=== PATIENT | male | born 1975 | race African-American/Black ===

== ENCOUNTER 2023-04-09 03:26 | Emergency (ER) | payer OTHER ==
[2023-04-09 03:38] VITALS: BP 148/76; PULSE 56; RESP 20; TEMP 98.4; BMI 25.0
[2023-04-09] MEDS ORDERED: ACETAMINOPHEN 1000 MG/100 ML BAG IVPB ONE (04:09)
[2023-04-09] MEDS ORDERED: LIDOCAINE 5% TOPICAL PATCH TP ONE (04:09)
[2023-04-09] MEDS ORDERED: FAMOTIDINE 20 MG/50 ML IVPB 20 MG/50 ML MG IVPB ONE ×2 (04:09→04:12)
[2023-04-09] MEDS ORDERED: SODIUM CHLORIDE 0.9% 500 ML INFUS.BAG IV ONE ×2 (04:09→05:00)
[2023-04-09] MEDS ORDERED: ONDANSETRON 4 MG/2 ML VIAL IVPUSH ONE (04:09)
[2023-04-09] MEDS ORDERED: LIDOCAINE 4% PATCH TP ONE (04:12)
[2023-04-09] MEDS ORDERED: ACETAMINOPHEN INJECTION 100 ML IVPB ONE (04:12)
[2023-04-09] MEDS ORDERED: ONDANSETRON 4 MG/2 ML VIAL ONE (04:12)
[2023-04-09 04:43] LABS: HEMATOCRIT 48.1 % (35.4-49); HEMOGLOBIN 16.5 GM/dL (11.7-16.9); MCH 30.5 pg (25.7-33.7); MCHC 34.2 g/dl (32.0-35.9); MEAN CELL VOLUME 89.2 fl (80-96); MEAN PLT VOLUME 9.3 fl (7.5-11.1); PLATELET COUNT 209 10^3/uL (134-434); RDW 15.7 % (11.9-15.9); WHITE BLOOD COUNT 18.4 K/mm3 (4.0-10.0)
[2023-04-09] MEDS ORDERED: POTASSIUM CHLORIDE ORAL LIQUID 20 MEQ/15 ML PO ONE (04:59)
[2023-04-09] MEDS ORDERED: MAGNESIUM SULF 50% (8.12 MEQ/2 ML-1 GM VIAL) IVPB ONE (04:59)
[2023-04-09 05:17] LABS: CHLORIDE 102 mmol/L (98-107)
[2023-04-09 05:19] LABS: ALBUMIN 4.2 g/dl (3.4-5.0); CALCIUM 9.3 mg/dL (8.5-10.1)
[2023-04-09 05:20] LABS: BLOOD UREA NITROGEN 15.4 mg/dL (7-18); CO2 20 mmol/L (21-32); GLUCOSE,RANDOM 117 mg/dL (74-106); MAGNESIUM 2.7 mg/dL (1.8-2.4)
[2023-04-09 05:22] LABS: CREATININE 1.2 mg/dL (0.55-1.3); PHOSPHOROUS 4.8 mg/dL (2.5-4.9)
[2023-04-09 05:24] LABS: TOT PROT 11.2 g/dl (6.4-8.2)
[2023-04-09 05:38] LABS: ANION GAP -8 MMOL/L (8-16); POTASSIUM > 10.0 mmol/L (3.5-5.1); SODIUM 114 mmol/L (136-145)
[2023-04-09 06:04] LABS: POTASSIUM 4.1 mmol/L (3.5-5.1)
[2023-04-09 06:07] LABS: ALBUMIN 4.4 g/dl (3.4-5.0); CALCIUM 9.1 mg/dL (8.5-10.1)
[2023-04-09 06:10] LABS: CREATININE 1.3 mg/dL (0.55-1.3); PHOSPHOROUS 2.8 mg/dL (2.5-4.9)
[2023-04-09 06:12] LABS: BILIRUBIN,TOTAL 0.8 mg/dL (0.2-1)
[2023-04-09 07:00] LABS: EPI CELLS 6 /uL (0-25.1); HYALINE CASTS 4 /uL (0-3.1); PH,URINE 5.5 (5.0-8.0); URINE APPEARANCE CLEAR; URINE BACTERIA 2 /uL (0-1359); URINE BILIRUBIN NEGATIVE (NEGATIVE); URINE COLOR DK YELLOW; URINE GLUCOSE (UA) NEGATIVE (NEGATIVE); URINE KETONE 3+ (NEGATIVE); URINE LEUK ESTERASE NEGATIVE (NEGATIVE); URINE NITRITE NEGATIVE (NEGATIVE); URINE PROTEIN 2+ (NEGATIVE); URINE RBC 20 /uL (0-23.9); URINE UROBILINOGEN 0.2 mg/dL (0.2-1.0); URINE WBC 17 /uL (0-25.8)
[2023-04-09 07:10] LABS: PLATELET ESTIMATE ADEQUATE
[2023-04-09] MEDS ORDERED: LIDOCAINE PATCH REMOVAL MC SCH (22:00)
== END 2023-04-09 09:20 | disposition home or self-care (01) ==
LOC: JER 03:26
PROC: 3E033GC Introduction of Other Therapeutic Substance into Peripheral Vein, Percutaneous Approach (ICD-10-PCS; principal; 2023-04-09)
PROC: 3E033NZ Introduction of Analgesics, Hypnotics, Sedatives into Peripheral Vein, Percutaneous Approach (ICD-10-PCS; 2023-04-09)
DX: R11.2 Nausea with vomiting, unspecified (principal); R19.7 Diarrhea, unspecified; R00.1 Bradycardia, unspecified; R10.13 Epigastric pain; G54.4 Lumbosacral root disorders, not elsewhere classified
CPT/HCPCS: 36415; 71046-TC-FY; 72129-TC; 72132-TC; 80053; 81003; 83690; 83735; 84100; 84153; 84439; 84443; 85025; 87086; 93005; 93010; 99285-25; Q9967

== ENCOUNTER 2023-04-09 21:47 | Emergency (ER) | payer OTHER ==
[2023-04-09 21:54] VITALS: BP 166/99; PULSE 52; RESP 18; TEMP 98.5; BMI 25.7
[2023-04-09] MEDS ORDERED: ONDANSETRON 4 MG/2 ML VIAL IVPUSH ONE (22:50)
[2023-04-09] MEDS ORDERED: FAMOTIDINE 20 MG/50 ML IVPB 20 MG/50 ML MG IVPB ONE ×2 (22:50→23:04)
[2023-04-09] MEDS ORDERED: MAG HYDROX/AL HYDROX/SIMETH 30 ML UNIT-DOSE CUP PO ONE (22:51)
[2023-04-09] MEDS ORDERED: MAG HYDROX/AL HYDROX/SIMETH 30 ML UNIT-DOSE CUP ONE (23:03)
[2023-04-09] MEDS ORDERED: ONDANSETRON 4 MG/2 ML VIAL ONE (23:03)
[2023-04-09 23:06] LABS: BASO % 0.5 % (0-2.0); EOS % 0.1 % (0-4.5); HEMATOCRIT 44.7 % (35.4-49); HEMOGLOBIN 15.2 GM/dL (11.7-16.9); LYMPH % 9.2 % (8-40); MCH 30.1 pg (25.7-33.7); MEAN CELL VOLUME 88.7 fl (80-96); MEAN PLT VOLUME 8.6 fl (7.5-11.1); MONO % 4.5 % (3.8-10.2); NEUT % 85.7 % (42.8-82.8); PLATELET COUNT 181 10^3/uL (134-434); RBC 5.04 M/mm3 (4.00-5.60); RDW 15.5 % (11.9-15.9)
[2023-04-09 23:14] LABS: INR 1.1 (0.83-1.09); PROTHROMBIN TIME (PATIENT) 12.8 SEC (9.7-13.0)
== END 2023-04-10 02:26 | disposition home or self-care (01) ==
LOC: JER 21:47
PROC: 3E033GC Introduction of Other Therapeutic Substance into Peripheral Vein, Percutaneous Approach (ICD-10-PCS; principal; 2023-04-09)
PROC: 3E033GC Introduction of Other Therapeutic Substance into Peripheral Vein, Percutaneous Approach (ICD-10-PCS; 2023-04-09)
DX: R10.9 Unspecified abdominal pain (principal); A08.4 Viral intestinal infection, unspecified; R11.2 Nausea with vomiting, unspecified
CPT/HCPCS: 36415; 74176-TC; 84484; 85025; 85610; 99284-25

== ENCOUNTER 2023-11-10 22:59 | Emergency (ER) | payer OTHER ==
[2023-11-10 23:10] VITALS: RESP 18; BMI 22.4
[2023-11-10] MEDS ORDERED: FAMOTIDINE 20 MG/50 ML IVPB 20 MG/50 ML MG IVPB ONE (23:26)
[2023-11-10] MEDS ORDERED: ONDANSETRON 4 MG/2 ML VIAL ONE (23:26)
[2023-11-10] MEDS ORDERED: METHOCARBAMOL 500 MG TABLET ONE (23:31)
[2023-11-10] MEDS ORDERED: LIDOCAINE 4% PATCH TP ONE (23:31)
[2023-11-10] MEDS ORDERED: ACETAMINOPHEN INJECTION 100 ML IVPB ONE (23:31)
[2023-11-10] MEDS: SODIUM CHLORIDE 0.9% 500 ML INFUS.BAG IV ONE (23:48)
[2023-11-10] MEDS: FAMOTIDINE 20 MG/50 ML IVPB 20 MG/50 ML MG IVPB ONE (23:48)
[2023-11-10] MEDS: ACETAMINOPHEN 1000 MG/100 ML BAG IVPB ONE (23:49)
[2023-11-10] MEDS: LIDOCAINE 5% TOPICAL PATCH TP ONE (23:49)
[2023-11-10] MEDS: METHOCARBAMOL 500 MG TABLET PO ONE (23:49)
[2023-11-10] MEDS: ONDANSETRON 4 MG/2 ML VIAL IVPUSH ONE (23:49)
[2023-11-10 23:56] LABS: BASO % 0.5 % (0-2.0); HEMATOCRIT 49.1 % (35.4-49); HEMOGLOBIN 16.6 GM/dL (11.7-16.9); LYMPH % 5.3 % (8-40); MCH 30.4 pg (25.7-33.7); MCHC 33.7 g/dl (32.0-35.9); MEAN CELL VOLUME 90.1 fl (80-96); NEUT % 92.2 % (42.8-82.8); PLATELET COUNT 231 10^3/uL (134-434); RBC 5.45 M/mm3 (4.00-5.60); RDW 15.9 % (11.9-15.9); WHITE BLOOD COUNT 18.2 K/mm3 (4.0-10.0)
[2023-11-11 00:28] LABS: POTASSIUM 4.2 mmol/L (3.5-5.1)
[2023-11-11 00:30] LABS: CALCIUM 10.7 mg/dL (8.5-10.1)
[2023-11-11 00:31] LABS: BLOOD UREA NITROGEN 20.1 mg/dL (7-18)
[2023-11-11 00:34] LABS: CREATININE 1.4 mg/dL (0.55-1.3)
[2023-11-11 00:35] LABS: BILIRUBIN,TOTAL 0.9 mg/dL (0.2-1); TOT PROT 8.7 g/dl (6.4-8.2)
[2023-11-11] MEDS ORDERED: KETOROLAC TROMETHAMINE 15 MG/ML VIAL ONE (00:47)
[2023-11-11] MEDS: KETOROLAC TROMETHAMINE 15 MG/ML VIAL IVPUSH ONE (00:56)
[2023-11-11 01:03] LABS: EPI CELLS 5 /uL (0-25.1); HYALINE CASTS 2 /uL (0-3.1); PH,URINE 5.5 (5.0-8.0); URINE APPEARANCE CLEAR; URINE BACTERIA 2 /uL (0-1359); URINE BILIRUBIN NEGATIVE (NEGATIVE); URINE COLOR YELLOW; URINE GLUCOSE (UA) NEGATIVE (NEGATIVE); URINE KETONE 1+ (NEGATIVE); URINE LEUK ESTERASE NEGATIVE (NEGATIVE); URINE NITRITE NEGATIVE (NEGATIVE); URINE PROTEIN 2+ (NEGATIVE); URINE RBC 428 /uL (0-23.9); URINE UROBILINOGEN 0.2 mg/dL (0.2-1.0); URINE WBC 28 /uL (0-25.8)
[2023-11-11] MEDS: LIDOCAINE PATCH REMOVAL MC SCH (02:13)
[2023-11-11] MEDS ORDERED: AMOX TR/POT CLAV 875MG/125MG TABLETS (FP) ONE (04:20)
[2023-11-11] MEDS: AMOX TR/POT CLAV 875MG/125MG TABLETS (FP) PO ONE (04:25)
[2023-11-11 04:28] VITALS: BP 137/67; PULSE 60; TEMP 98.2
== END 2023-11-11 04:27 | disposition home or self-care (01) ==
LOC: JER 22:59
PROC: 3E033GC Introduction of Other Therapeutic Substance into Peripheral Vein, Percutaneous Approach (ICD-10-PCS; principal; 2023-11-10)
PROC: 3E033GC Introduction of Other Therapeutic Substance into Peripheral Vein, Percutaneous Approach (ICD-10-PCS; 2023-11-10)
PROC: 3E033NZ Introduction of Analgesics, Hypnotics, Sedatives into Peripheral Vein, Percutaneous Approach (ICD-10-PCS; 2023-11-10)
PROC: 3E0333Z Introduction of Anti-inflammatory into Peripheral Vein, Percutaneous Approach (ICD-10-PCS; 2023-11-11)
DX: R11.2 Nausea with vomiting, unspecified (principal); R31.9 Hematuria, unspecified; R19.7 Diarrhea, unspecified; R94.4 Abnormal results of kidney function studies; Z20.822 Contact with and (suspected) exposure to COVID-19
CPT/HCPCS: 0241U-QW; 36415; 74176-TC; 80053; 81003; 83690; 85025; 87086; 99284-25; J0131

== ENCOUNTER 2023-11-11 21:21 | Inpatient (IN) | payer OTHER ==
[2023-11-11] MEDS ORDERED: FAMOTIDINE 20 MG/50 ML IVPB 20 MG/50 ML MG IVPB ONE (22:47)
[2023-11-11] MEDS ORDERED: MAG HYDROX/AL HYDROX/SIMETH 30 ML UNIT-DOSE CUP ONE (22:47)
[2023-11-11] MEDS ORDERED: ONDANSETRON 4 MG/2 ML VIAL ONE (22:47)
[2023-11-11] MEDS ORDERED: SUCRALFATE 1 GM TABLET (FP) ONE (22:47)
[2023-11-11] MEDS ORDERED: ACETAMINOPHEN INJECTION 100 ML IVPB ONE (22:47)
[2023-11-11 23:07] LABS: BASO % 0.1 % (0-2.0); HEMATOCRIT 44.9 % (35.4-49); HEMOGLOBIN 15.2 GM/dL (11.7-16.9); LYMPH % 12.1 % (8-40); MCH 30.6 pg (25.7-33.7); MCHC 33.8 g/dl (32.0-35.9); MEAN CELL VOLUME 90.7 fl (80-96); MONO % 4.6 % (3.8-10.2); NEUT % 83.2 % (42.8-82.8); PLATELET COUNT 199 10^3/uL (134-434); RBC 4.95 M/mm3 (4.00-5.60); RDW 15.6 % (11.9-15.9)
[2023-11-11] MEDS: ACETAMINOPHEN 1000 MG/100 ML BAG IVPB ONE (23:07)
[2023-11-11] MEDS: LACTATED RINGERS SOLUTION 1000 ML INFUS.BAG IV ONE (23:07)
[2023-11-11] MEDS: SUCRALFATE 1 GM TABLET (FP) PO ONE (23:07)
[2023-11-11] MEDS: MAG HYDROX/AL HYDROX/SIMETH 30 ML UNIT-DOSE CUP PO ONE (23:07)
[2023-11-11] MEDS: ONDANSETRON 4 MG/2 ML VIAL IVPUSH ONE (23:08)
[2023-11-11] MEDS: FAMOTIDINE 20 MG/50 ML IVPB 20 MG/50 ML MG IVPB ONE (23:26)
[2023-11-11 23:30] LABS: ALBUMIN 4.6 g/dl (3.4-5.0); BLOOD UREA NITROGEN 17.8 mg/dL (7-18); CALCIUM 9.6 mg/dL (8.5-10.1); MAGNESIUM 2.3 mg/dL (1.8-2.4)
[2023-11-11 23:33] LABS: PHOSPHOROUS 3.6 mg/dL (2.5-4.9)
[2023-11-11 23:34] LABS: BILIRUBIN,TOTAL 0.9 mg/dL (0.2-1)
[2023-11-11 23:35] LABS: TOT PROT 7.8 g/dl (6.4-8.2)
[2023-11-12 00:26] LABS: HIV INTERPRETATION NEGATIVE (NEGATIVE)
[2023-11-12] MEDS ORDERED: KETOROLAC TROMETHAMINE 15 MG/ML VIAL ONE (03:25)
[2023-11-12] MEDS: KETOROLAC TROMETHAMINE 15 MG/ML VIAL IVPUSH ONE (03:26)
[2023-11-12] MEDS: ENOXAPARIN NA (PORCINE) 40 MG/0.4 ML DISP.SYRIN SQ SCH (10:32)
[2023-11-12] MEDS: PANTOPRAZOLE SODIUM 40 MG VIAL IVPUSH SCH (10:32)
[2023-11-12] MEDS: ONDANSETRON 4 MG/2 ML VIAL IVPUSH PRN (10:32)
[2023-11-12] MEDS: LACTATED RINGERS SOLUTION 1,000 ML IV SCH (10:33)
[2023-11-12] MEDS: PIPERACILLIN/TAZOB 3.375 GM 3.375 GM in DEXTROSE 5%-WATER - 50 ML IVPB SCH (10:34)
[2023-11-12 11:17] VITALS: BMI 21.4
[2023-11-12 12:37] LABS: URINE APPEARANCE CLEAR; URINE BILIRUBIN NEGATIVE (NEGATIVE); URINE COLOR YELLOW; URINE GLUCOSE (UA) NEGATIVE (NEGATIVE); URINE KETONE NEGATIVE (NEGATIVE); URINE LEUK ESTERASE NEGATIVE (NEGATIVE); URINE NITRITE NEGATIVE (NEGATIVE); URINE PROTEIN NEGATIVE (NEGATIVE); URINE UROBILINOGEN 0.2 mg/dL (0.2-1.0)
[2023-11-12 12:48] LABS: COCAINE, UR NEGATIVE (NEGATIVE); METHADONE, UR NEGATIVE (NEGATIVE); URINE AMPHETAMINES NEGATIVE (NEGATIVE); URINE BARBITURATES NEGATIVE (NEGATIVE)
[2023-11-12 12:49] LABS: OPIATES, URI POSITIVE (NEGATIVE); PHENCYCLIDINE,URINE NEGATIVE (NEGATIVE); URINE BENZODIAZEPINES NEGATIVE (NEGATIVE)
[2023-11-12] MEDS: ACETAMINOPHEN 1000 MG/100 ML BAG IVPB PRN (17:10)
[2023-11-12] MEDS: LATANOPROST 0.005% OPHTH SOLN 2.5ML BOTTLE OU SCH (22:23)
[2023-11-12] MEDS: MELATONIN 5 MG TABLETS PO PRN (22:55)
[2023-11-13] MEDS: LORazepam 2 MG/ML SDV VIAL IVPUSH ONE (03:30)
[2023-11-13] MEDS: MAG HYDROX/AL HYDROX/SIMETH 30 ML UNIT-DOSE CUP PO ONE (06:41)
[2023-11-13 09:01] LABS: BASO % 0.2 % (0-2.0); HEMATOCRIT 41.2 % (35.4-49); HEMOGLOBIN 14.2 GM/dL (11.7-16.9); MCH 31.1 pg (25.7-33.7); MCHC 34.5 g/dl (32.0-35.9); MEAN CELL VOLUME 90.2 fl (80-96); MEAN PLT VOLUME 9.4 fl (7.5-11.1); MONO % 5.1 % (3.8-10.2); NEUT % 75.7 % (42.8-82.8); PLATELET COUNT 178 10^3/uL (134-434); RBC 4.57 M/mm3 (4.00-5.60); RDW 15.1 % (11.9-15.9); WHITE BLOOD COUNT 10.2 K/mm3 (4.0-10.0)
[2023-11-13 09:16] LABS: POTASSIUM 3.4 mmol/L (3.5-5.1)
[2023-11-13 09:26] LABS: BLOOD UREA NITROGEN 9.7 mg/dL (7-18); MAGNESIUM 2.2 mg/dL (1.8-2.4)
[2023-11-13 09:29] LABS: CREATININE 0.9 mg/dL (0.55-1.3); PHOSPHOROUS 3.6 mg/dL (2.5-4.9)
[2023-11-13] MEDS: LACTOBACILLUS ACIDOPHILUS 1 TABLET PO SCH (11:08)
[2023-11-13] MEDS: POTASSIUM CHLORIDE ORAL LIQUID 20 MEQ/15 ML PO ONE (11:41)
[2023-11-13] MEDS: METOCLOPRAMIDE HCL INJECTION 10 MG/2 ML VIAL IVPUSH SCH (11:42)
[2023-11-13] MEDS: PIPERACILLIN/TAZOB 3.375 GM 3.375 GM in DEXTROSE 5%-WATER - 50 ML IVPB SCH (13:05)
[2023-11-13] MEDS ORDERED: KETOROLAC TROMETHAMINE 15 MG/ML VIAL IVPUSH PRN (17:09)
[2023-11-13] MEDS ORDERED: ACETAMINOPHEN 325 MG TABLET (FP) PO PRN (17:10)
[2023-11-13] MEDS: KETOROLAC TROMETHAMINE 15 MG/ML VIAL IVPUSH ONE (17:20)
[2023-11-13] MEDS: PANTOPRAZOLE 40 MG TABLET PO SCH (21:47)
[2023-11-14 05:36] VITALS: RESP 18
[2023-11-14 06:33] VITALS: TEMP 98.2
[2023-11-14 08:42] LABS: BASO % 0.4 % (0-2.0); EOS % 0.8 % (0-4.5); HEMATOCRIT 39.4 % (35.4-49); HEMOGLOBIN 13.2 GM/dL (11.7-16.9); LYMPH % 34.6 % (8-40); MCH 30.5 pg (25.7-33.7); MCHC 33.4 g/dl (32.0-35.9); MEAN CELL VOLUME 91.4 fl (80-96); MEAN PLT VOLUME 9.1 fl (7.5-11.1); MONO % 6.9 % (3.8-10.2); NEUT % 57.3 % (42.8-82.8); PLATELET COUNT 168 10^3/uL (134-434); RBC 4.31 M/mm3 (4.00-5.60); RDW 14.9 % (11.9-15.9); WHITE BLOOD COUNT 9.1 K/mm3 (4.0-10.0)
[2023-11-14 08:52] LABS: POTASSIUM 3.6 mmol/L (3.5-5.1)
[2023-11-14 08:54] LABS: CALCIUM 8.6 mg/dL (8.5-10.1)
[2023-11-14 08:55] LABS: BLOOD UREA NITROGEN 12.7 mg/dL (7-18); MAGNESIUM 2.4 mg/dL (1.8-2.4)
[2023-11-14 08:58] LABS: CREATININE 0.9 mg/dL (0.55-1.3)
[2023-11-14 09:00] LABS: BILIRUBIN,TOTAL 0.8 mg/dL (0.2-1); TOT PROT 5.8 g/dl (6.4-8.2)
[2023-11-14 09:06] LABS: ALBUMIN 3.2 g/dl (3.4-5.0)
[2023-11-14 13:53] VITALS: BP 132/97; PULSE 62
== END 2023-11-14 14:17 | disposition home or self-care (01) | DRG 249 ==
LOC: JER 21:21 → JERBED 11-12 00:48 → OBSVTOIN 11-12 09:21 → J8W 11-12 09:52
PROVIDERS: ADMIT Student in an Organized Health Care Education/Training Program; ATTEND Nurse Practitioner Acute Care
DX: K52.9 Noninfective gastroenteritis and colitis, unspecified (principal); F12.10 Cannabis abuse, uncomplicated; K29.70 Gastritis, unspecified, without bleeding; M54.9 Dorsalgia, unspecified; R11.2 Nausea with vomiting, unspecified
CPT/HCPCS: 0241U-QW; 36415; 72131-TC; 74176-TC; 80048; 80053; 80307; 81003; 83605; 83690; 83735; 84100; 84443; 85025; 87040; 87045; 87046; 87086; 87324; 87389; 87449; 99285-25; G0378; J0131

== ENCOUNTER 2023-11-30 01:08 | Emergency (ER) | payer OTHER ==
[2023-11-30 01:15] VITALS: BP 127/87; PULSE 96; RESP 18; TEMP 97.7; BMI 21.6
[2023-11-30] MEDS ORDERED: LIDOCAINE HCL 2% JELLY 11 ML TP ONE (03:31)
[2023-11-30] MEDS: LIDOCAINE HCL 2% JELLY 10 ML CARTRIDGE PR ONE (03:33)
== END 2023-11-30 05:47 | disposition home or self-care (01) ==
LOC: JER 01:08
DX: K59.00 Constipation, unspecified (principal)
CPT/HCPCS: 99283-25

== ENCOUNTER 2024-08-03 17:23 | Inpatient (IN) | payer OTHER ==
[2024-08-03] MEDS ORDERED: ONDANSETRON 4 MG/2 ML VIAL ONE (18:19)
[2024-08-03] MEDS ORDERED: LIDOCAINE 4% PATCH TP ONE (18:19)
[2024-08-03] MEDS ORDERED: ACETAMINOPHEN INJECTION 100 ML ONE (18:19)
[2024-08-03] MEDS ORDERED: FAMOTIDINE 20 MG/50 ML IVPB 20 MG/50 ML MG IVPB ONE (18:20)
[2024-08-03] MEDS: LIDOCAINE 4% PATCH TP ONE (18:25)
[2024-08-03] MEDS: ONDANSETRON 4 MG/2 ML VIAL IVPUSH ONE (18:33)
[2024-08-03] MEDS: ACETAMINOPHEN 1000 MG/100 ML BAG IVPB ONE (18:35)
[2024-08-03] MEDS: FAMOTIDINE 20 MG/50 ML IVPB 20 MG/50 ML MG IVPB ONE (18:38)
[2024-08-03 18:47] LABS: HEMATOCRIT 48.3 % (35.4-49); HEMOGLOBIN 15.5 GM/dL (11.7-16.9); MCH 29.8 pg (25.7-33.7); MCHC 32.1 g/dl (32.0-35.9); MEAN CELL VOLUME 92.8 fl (80-96); MEAN PLT VOLUME 8.4 fl (7.5-11.1); PLATELET COUNT 193 10^3/uL (134-434); RBC 5.21 M/mm3 (4.00-5.60); RDW 15.1 % (11.9-15.9)
[2024-08-03 19:07] LABS: CHLORIDE 111 mmol/L (98-107); POTASSIUM 3.7 mmol/L (3.5-5.1); SODIUM 144 mmol/L (136-145)
[2024-08-03 19:09] LABS: ALBUMIN 4.4 g/dl (3.4-5.0); ANION GAP 8 mmol/L (4-13); BLOOD UREA NITROGEN 15.7 mg/dL (7-18); CALCIUM 9.5 mg/dL (8.5-10.1); CO2 25 mmol/L (21-32); GLUCOSE,RANDOM 191 mg/dL (74-106); MAGNESIUM 2.3 mg/dL (1.8-2.4)
[2024-08-03 19:12] LABS: CREATININE 1.2 mg/dL (0.55-1.3); SGOT/AST 16 U/L (15-37); SGPT/ALT 24 U/L (13-61)
[2024-08-03 19:14] LABS: BILIRUBIN,TOTAL 0.6 mg/dL (0.2-1); TOT PROT 7.5 g/dl (6.4-8.2)
[2024-08-03 19:15] LABS: ALK PHOS 67 U/L (45-117)
[2024-08-03] MEDS: SODIUM CHLORIDE 1,000 ML IV STA (19:39)
[2024-08-03 20:06] LABS: ANISOCYTOSIS 1+; MACROCYTOSIS 0
[2024-08-03] MEDS: LIDOCAINE PATCH REMOVAL MC SCH (22:08)
[2024-08-03 22:11] LABS: EPI CELLS 2 /uL (0-25.1); HYALINE CASTS 1 /uL (0-3.1); PH,URINE 5.5 (5.0-8.0); URINE APPEARANCE CLEAR; URINE BACTERIA 2 /uL (0-1359); URINE BILIRUBIN NEGATIVE (NEGATIVE); URINE COLOR YELLOW; URINE GLUCOSE (UA) NEGATIVE (NEGATIVE); URINE KETONE 2+ (NEGATIVE); URINE LEUK ESTERASE NEGATIVE (NEGATIVE); URINE NITRITE NEGATIVE (NEGATIVE); URINE PROTEIN TRACE (NEGATIVE); URINE RBC 86 /uL (0-23.9); URINE UROBILINOGEN 0.2 mg/dL (0.2-1.0); URINE WBC 17 /uL (0-25.8)
[2024-08-03] MEDS ORDERED: KETOROLAC TROMETHAMINE 15 MG/ML VIAL IVPUSH PRN (23:14)
[2024-08-03] MEDS ORDERED: KETOROLAC TROMETHAMINE 30 MG/1 ML VIAL ONE (23:21)
[2024-08-03] MEDS ORDERED: TAMSULOSIN HCL 0.4 MG CAP ONE (23:21)
[2024-08-03] MEDS ORDERED: CEFTRIAXONE 1 G/50 ML PREMIX 50 ML IVPB ONE (23:21)
[2024-08-03] MEDS: KETOROLAC TROMETHAMINE 30 MG/1 ML VIAL IVPUSH ONE (23:23)
[2024-08-03] MEDS: TAMSULOSIN HCL 0.4 MG CAP PO ONE (23:23)
[2024-08-03 23:30] LABS: URINE CRYSTALS NONE SEEN /hpf
[2024-08-03] MEDS: morphine CARPU-JECT 2 MG/1 ML DISP.SYRIN IVPUSH ONE (23:36)
[2024-08-03] MEDS: LACTATED RINGERS SOLUTION 1,000 ML IV SCH (23:36)
[2024-08-04] MEDS ORDERED: MELATONIN 5 MG TABLETS PO PRN (00:05)
[2024-08-04] MEDS ORDERED: MORPHINE SULFATE 2 MG/ML SYRINGE IVPUSH PRN (00:29)
[2024-08-04 02:09] LABS: METHADONE, UR NEGATIVE (NEGATIVE)
[2024-08-04 02:10] LABS: COCAINE, UR NEGATIVE (NEGATIVE); PHENCYCLIDINE,URINE NEGATIVE (NEGATIVE); URINE BARBITURATES NEGATIVE (NEGATIVE)
[2024-08-04 02:12] LABS: OPIATES, URI NEGATIVE (NEGATIVE); URINE AMPHETAMINES NEGATIVE (NEGATIVE); URINE BENZODIAZEPINES NEGATIVE (NEGATIVE)
[2024-08-04 02:37] VITALS: BMI 24.0
[2024-08-04] MEDS: TAMSULOSIN HCL 0.4 MG CAP PO SCH (09:35)
[2024-08-04] MEDS: CEFTRIAXONE 1 G/50 ML PREMIX 50 ML IVPB SCH (09:35)
[2024-08-04] MEDS: ENOXAPARIN NA (PORCINE) 40 MG/0.4 ML DISP.SYRIN SQ SCH (09:35)
[2024-08-04] MEDS: POLYETHYLENE GLYCOL (HEALTHYLAX) 3350 17 GM PACKET PO SCH (09:35)
[2024-08-04 09:42] LABS: BASO % 0.2 % (0-2.0); HEMATOCRIT 42.7 % (35.4-49); HEMOGLOBIN 13.8 GM/dL (11.7-16.9); LYMPH % 11.6 % (8-40); MCH 29.7 pg (25.7-33.7); MCHC 32.2 g/dl (32.0-35.9); MONO % 3.6 % (3.8-10.2); NEUT % 84.6 % (42.8-82.8); PLATELET COUNT 165 10^3/uL (134-434); RBC 4.64 M/mm3 (4.00-5.60); RDW 15.1 % (11.9-15.9); WHITE BLOOD COUNT 15.2 K/mm3 (4.0-10.0)
[2024-08-04 09:57] LABS: POTASSIUM 3.6 mmol/L (3.5-5.1)
[2024-08-04 10:00] LABS: BLOOD UREA NITROGEN 15.2 mg/dL (7-18); CALCIUM 8.9 mg/dL (8.5-10.1); MAGNESIUM 2.1 mg/dL (1.8-2.4)
[2024-08-04 10:01] LABS: ALBUMIN 3.6 g/dl (3.4-5.0)
[2024-08-04 10:04] LABS: CREATININE 1.1 mg/dL (0.55-1.3); PHOSPHOROUS 2.5 mg/dL (2.5-4.9)
[2024-08-04 10:05] LABS: BILIRUBIN,TOTAL 1.1 mg/dL (0.2-1); TOT PROT 6.5 g/dl (6.4-8.2)
[2024-08-04 10:27] LABS: ERYTHROCYTE SEDIMENTATION RATE 2 mm/hr (0-10)
[2024-08-04] MEDS: ACETAMINOPHEN 325 MG TABLET (FP) PO PRN (20:43)
[2024-08-04] MEDS: KETOROLAC TROMETHAMINE 15 MG/ML VIAL IVPUSH ONE (23:35)
[2024-08-05] MEDS: ONDANSETRON 4 MG/2 ML VIAL IVPUSH PRN (04:21)
[2024-08-05] MEDS: METOCLOPRAMIDE HCL INJECTION 10 MG/2 ML VIAL IVPUSH ONE (05:34)
[2024-08-05 08:35] LABS: BASO % 0.1 % (0-2.0); HEMATOCRIT 44.1 % (35.4-49); HEMOGLOBIN 14.5 GM/dL (11.7-16.9); LYMPH % 7.3 % (8-40); MCH 30.1 pg (25.7-33.7); MCHC 32.9 g/dl (32.0-35.9); MEAN CELL VOLUME 91.7 fl (80-96); MEAN PLT VOLUME 8.9 fl (7.5-11.1); MONO % 3.5 % (3.8-10.2); NEUT % 89.1 % (42.8-82.8); PLATELET COUNT 164 10^3/uL (134-434); RBC 4.81 M/mm3 (4.00-5.60); RDW 14.8 % (11.9-15.9); WHITE BLOOD COUNT 15.3 K/mm3 (4.0-10.0)
[2024-08-05 08:43] LABS: POTASSIUM 3.9 mmol/L (3.5-5.1)
[2024-08-05 09:04] LABS: ALBUMIN 3.8 g/dl (3.4-5.0); BLOOD UREA NITROGEN 12.5 mg/dL (7-18); MAGNESIUM 2.2 mg/dL (1.8-2.4)
[2024-08-05 09:07] LABS: CREATININE 1.1 mg/dL (0.55-1.3)
[2024-08-05 09:08] LABS: BILIRUBIN,TOTAL 0.6 mg/dL (0.2-1)
[2024-08-05 09:09] LABS: TOT PROT 6.7 g/dl (6.4-8.2)
[2024-08-05] MEDS: PANTOPRAZOLE SODIUM 40 MG VIAL IVPUSH SCH (18:44)
[2024-08-05] MEDS ORDERED: BENZOCAINE/MENTH/CETYLPYRD CL 1 EACH LOZENGE MM PRN (20:33)
[2024-08-06 09:18] LABS: POTASSIUM 3.4 mmol/L (3.5-5.1)
[2024-08-06 09:24] LABS: ALBUMIN 3.8 g/dl (3.4-5.0); BLOOD UREA NITROGEN 9.8 mg/dL (7-18)
[2024-08-06 09:25] LABS: MAGNESIUM 2.3 mg/dL (1.8-2.4)
[2024-08-06 09:26] LABS: TOT PROT 6.7 g/dl (6.4-8.2)
[2024-08-06 09:27] LABS: CREATININE 0.9 mg/dL (0.55-1.3)
[2024-08-06 09:33] LABS: BASO % 0.3 % (0-2.0); EOS % 0.1 % (0-4.5); HEMATOCRIT 46.7 % (35.4-49); HEMOGLOBIN 15.1 GM/dL (11.7-16.9); LYMPH % 16.5 % (8-40); MCH 29.8 pg (25.7-33.7); MCHC 32.4 g/dl (32.0-35.9); MEAN CELL VOLUME 91.8 fl (80-96); MEAN PLT VOLUME 9.2 fl (7.5-11.1); NEUT % 78.1 % (42.8-82.8); PLATELET COUNT 169 10^3/uL (134-434); RBC 5.08 M/mm3 (4.00-5.60); RDW 14.5 % (11.9-15.9); WHITE BLOOD COUNT 12.9 K/mm3 (4.0-10.0)
[2024-08-06] MEDS: KCL 10 MEQ IVPB 10 MEQ/100 ML INFUS.BAG IVPB SCH (11:42)
[2024-08-06] MEDS: METOCLOPRAMIDE HCL INJECTION 10 MG/2 ML VIAL IVPUSH SCH (11:44)
[2024-08-06] MEDS: LACTATED RINGERS SOLUTION 1,000 ML/1,000 ML INFUS.BAG IV SCH (16:17)
[2024-08-06 20:04] VITALS: RESP 18
[2024-08-07 09:19] LABS: BASO % 0.5 % (0-2.0); EOS % 0.1 % (0-4.5); HEMOGLOBIN 15.4 GM/dL (11.7-16.9); LYMPH % 16.9 % (8-40); MCH 30.1 pg (25.7-33.7); MCHC 32.8 g/dl (32.0-35.9); MEAN CELL VOLUME 91.7 fl (80-96); MEAN PLT VOLUME 8.7 fl (7.5-11.1); MONO % 5.1 % (3.8-10.2); NEUT % 77.4 % (42.8-82.8); PLATELET COUNT 171 10^3/uL (134-434); RBC 5.12 M/mm3 (4.00-5.60); RDW 14.4 % (11.9-15.9); WHITE BLOOD COUNT 9.2 K/mm3 (4.0-10.0)
[2024-08-07 09:39] LABS: POTASSIUM 3.5 mmol/L (3.5-5.1)
[2024-08-07 09:45] LABS: CALCIUM 8.8 mg/dL (8.5-10.1)
[2024-08-07 09:46] LABS: ALBUMIN 3.8 g/dl (3.4-5.0); BLOOD UREA NITROGEN 10.9 mg/dL (7-18); MAGNESIUM 2.1 mg/dL (1.8-2.4)
[2024-08-07 09:49] LABS: CREATININE 0.9 mg/dL (0.55-1.3); PHOSPHOROUS 3.4 mg/dL (2.5-4.9)
[2024-08-07 09:51] LABS: TOT PROT 6.9 g/dl (6.4-8.2)
[2024-08-08] MEDS: KETOROLAC TROMETHAMINE 15 MG/ML VIAL IVPUSH ONE (02:42)
[2024-08-08 05:55] VITALS: TEMP 98.4
[2024-08-08 08:51] LABS: HEMATOCRIT 44.1 % (35.4-49); MCH 30.4 pg (25.7-33.7); MEAN CELL VOLUME 89.4 fl (80-96); MEAN PLT VOLUME 8.6 fl (7.5-11.1); PLATELET COUNT 176 10^3/uL (134-434); RBC 4.93 M/mm3 (4.00-5.60); WHITE BLOOD COUNT 8.5 K/mm3 (4.0-10.0)
[2024-08-08 10:13] VITALS: BP 122/77; PULSE 81
== END 2024-08-08 13:43 | disposition home or self-care (01) | DRG 463 ==
LOC: JER 17:23 → JERBED 23:24 → J5S 08-04 01:59 → OBSVTOIN 08-06 11:16
PROVIDERS: ADMIT Student in an Organized Health Care Education/Training Program
DX: N12 Tubulo-interstitial nephritis, not specified as acute or chronic (principal); K29.50 Unspecified chronic gastritis without bleeding; N13.30 Unspecified hydronephrosis; N13.4 Hydroureter; F12.90 Cannabis use, unspecified, uncomplicated; R33.9 Retention of urine, unspecified; R11.2 Nausea with vomiting, unspecified; R30.0 Dysuria; D72.829 Elevated white blood cell count, unspecified; E87.6 Hypokalemia; M54.50 Low back pain, unspecified
CPT/HCPCS: 36415; 74176-TC; 76775-TC; 80048; 80053; 80307; 81003; 83735; 84100; 85025; 85027; 85651; 86140; 87040; 87086; 87491; 87536; 87591; 93005; 93010; 97116-GP; 97161-GP; 99285-25; G0378; J0131